=== PATIENT | female | born 1975 | race Caucasian/White ===

== ENCOUNTER 2020-03-29 05:38 | Day surgery (SDC) | payer OTHER, BC ==
[2020-03-22 16:05] VITALS: BMI 38.4
--- NOTE | 2020-03-28 08:01 | P.HPOB ---
History of Present Illness H&P Date: 03/28/20 Chief Complaint: Menorrhagia, dysfunctional uterine bleeding. This patient is a pleasant 44-year-old to 5 para 3 female who is referred to my office in mid January for evaluation of dysfunctional bleeding and menorrhagia. Patient's been having heavy periods approximately 2 times per month. Ultrasound was done which was normal. Patient had a normal Pap smear and endometrial biopsy and is requesting endometrial ablation for treatment. Review of Systems Menstruation: Reports as per HPI, Reports menses variable, Reports period heavy Past Medical History Past Medical History: No Reported History History of Any Multi-Drug Resistant Organisms: None Reported Past Surgical History: Tubal Ligation Additional Past Surgical History / Comment(s): D&C. Past Anesthesia/Blood Transfusion Reactions: Motion Sickness Past Psychological History: No Psychological Hx Reported Smoking Status: Never smoker Past Alcohol Use History: Occasional Past Drug Use History: None Reported - Past Family History Mother Family Medical History: No Reported History Medications and Allergies Home Medications Medication Instructions Recorded Confirmed Type No Known Home Medications 03/22/20 03/22/20 History Allergies Allergy/AdvReac Type Severity Reaction Status Date / Time No Known Allergies Allergy Verified 03/22/20 16:01 Exam - OBG Physical Exam Abdomen: bowel sounds normal, no diffuse tenderness, no bruit present, no guarding noted, no hepatomegaly, no splenomegaly, no mass Vulva: both: normal Vagina: normal moisture, no discharge Cervix: no lesion, no discharge Uterus: normal size, normal contour Results Normal ultrasound and normal endometrial biopsy. Assessment and Plan Assessment: This is a pleasant 44-year-old 5 para 3 female long-standing menorrhagia and dysfunctional bleeding requesting endometrial ablation. Plan is hysteroscopy, D&C, and NovaSure endometrial ablation. Patient I discussed the surgery and risks including risks of infection, bleeding, possible uterine perforation, and/or thermal injury. All the patient's questions are answered written consent is obtained. (1) Dysfunctional uterine bleeding Status: Acute Code(s): N93.8 - OTHER SPECIFIED ABNORMAL UTERINE AND VAGINAL BLEEDING SNOMED Code(s): 74528546931530
[~2020-03-29 05:38] MED LIST: Pre Op ABX Message 1 EACH MISC MISCELLANE ONE
[2020-03-29] MEDS ORDERED: DEXAMETHASONE SOD PHOSPHATE 4 MG/ML 1 ML VIAL IV ONE (06:11)
[2020-03-29] MEDS ORDERED: ONDANSETRON 4 MG/2 ML VIAL IVP ONE ×2 (06:11→07:44)
[2020-03-29] MEDS ORDERED: LACTATED RINGERS 1,000 ML IV SCH (06:11)
[2020-03-29] MEDS ORDERED: LIDOCAINE 1% (10MG/ML) FOR IV START INTRADERMA ONE (06:35)
[2020-03-29] MEDS ORDERED: SCOPOLAMINE 1.5MG/72HR PATCH TRANSDERM ONE (06:45)
[2020-03-29 06:54] VITALS: TEMP 97.4
[2020-03-29] MEDS ORDERED: LIDOCAINE 1% INJ 10MG/ML (20 ML MDV) ONE (07:00)
[2020-03-29] MEDS ORDERED: fentaNYL (PF) 50 MCG/ML 2 ML AMP ONE (07:00)
[2020-03-29] MEDS ORDERED: MIDAZOLAM 2 MG/2 ML VIAL ONE (07:00)
[2020-03-29] MEDS ORDERED: SUCCINYLCHOLINE CHLORIDE 100 MG/5 ML SYR IV ONE (07:00)
[2020-03-29] MEDS ORDERED: KETOROLAC 15 MG/ML 1 ML VIAL ONE (07:00)
[2020-03-29] MEDS ORDERED: HYDROmorphone 0.5 MG/0.5 ML SYRINGE IVP PRN (07:00)
[2020-03-29] MEDS ORDERED: PROPOFOL 10 MG/ML 20 ML VIAL IV ONE (07:00)
[2020-03-29] MEDS ORDERED: ePHEDrine SULFATE/0.9% NACL/PF 50 MG/5 ML SYRINGE IV ONE (07:00)
[2020-03-29] MEDS ORDERED: LACTATED RINGERS 1,000 ML IV ONE (07:27)
--- NOTE | 2020-03-29 07:35 | P.OP ---
Date of Procedure: 03/29/20 Preoperative Diagnosis: Dysfunctional uterine bleeding Postoperative Diagnosis: Same Procedure(s) Performed: #1: Hysteroscopy. #2: Dilation and curettage. #3: NovaSure endometrial ablation Anesthesia: ANTHONY Surgeon: Jose Alfredo Puri Estimated Blood Loss (ml): 5 Urine output (ml): 15 Pathology: other (Uterine curettings) Condition: stable Disposition: PACU Indications for Procedure: Please see dictated H&P for intimate details of this patient's admission. Brief summary this is a 44-year-old multiparous patient with long-standing dysfunctional uterine bleeding who is requesting NovaSure endometrial ablation for treatment. Patient I discussed the surgery and risks and risks of infection, bleeding, possible uterine perforation, and/or thermal injury. All the patient's questions are answered and a written consent is obtained. Operative Findings: Patient had a normal-appearing endometrial cavity without evidence of polyps or fibroids. There was some endometrial thickening anteriorly Description of Procedure: This patient is taken to the operating room where she is laid in the supine position. She subsequent undergoes general endotracheal anesthesia without incident. With an adequate level of anesthesia she's placed in dorsal lithotomy position. She has a vaginal perineal prep and drape. Examination under anesthesia shows a mid position uterus. I first drain her bladder for 15 mL of clear urine. Weighted speculum was then placed in the posterior vagina. Anterior lip of the cervix is gravid and Allis clamp. Cervix is sounded at this time to 9.5 cm. Cervix is then gently dilated to allow the hysteroscope into the uterine cavity. Hysteroscopy is performed with saline solution and the uterine cavity is measured a length of 6.5 cm. The hysteroscope was then removed. Cervix is dilated more to allow the small curette into the uterine cavity a gentle but thorough 4 quadrant curettage is done for adequate sampling. This tissue is sent off to pathology. This completed the NovaSure device is then opened it appears to be intact. Set at a length of 6.5 cm and opens up to a width of 4.7 cm. After it is seated in place it passes the cavity integrity test is then enabled at 168 W setting for 48 seconds. With this done the NovaSure device is then removed it appears to be intact. Hysteroscopy is performed again and the uterine cavity appears to be ablated up to the endocervix. With this done the procedure is ended. The weighted speculum and Allis clamp are removed. All counts are correct 3. There are no complications. Patient is awakened from anesthesia and taken to the recovery room in satisfactory condition.
[2020-03-29 07:50] VITALS: RESP 16
[2020-03-29] MEDS ORDERED: METOCLOPRAMIDE 5 MG/ML 2 ML VIAL IVP ONE (07:58)
[2020-03-29] MEDS ORDERED: Acetaminophen-Codeine 300-30mg TAB PO ONE (08:45)
[2020-03-29] MEDS ORDERED: Acetaminophen-Codeine 300-30mg TAB ONE (08:46)
[2020-03-29 09:17] VITALS: BP 101/65; PULSE 75
== END 2020-03-29 09:33 | disposition home or self-care (01) ==
LOC: OR 05:38
PROVIDERS: ATTEND Obstetrics & Gynecology
DX: N84.0 Polyp of corpus uteri (principal); N92.0 Excessive and frequent menstruation with regular cycle; N93.8 Other specified abnormal uterine and vaginal bleeding; Z98.51 Tubal ligation status; K21.9 Gastro-esophageal reflux disease without esophagitis
CPT/HCPCS: 88305; 84703; 58563; J2250; J1100; J2765; J2405; J2001; J3010; J1885; J0330; J2704

== ENCOUNTER → 2023-03-05 | Outpatient (CLI) | payer OTHER, BC ==
[2023-03-05 11:41] LABS: Basophils # (A) 0.1 k/uL (0-0.2); Basophils % (A) 1 %; Eosinophils # (A) 0.1 k/uL (0-0.7); Eosinophils % (A) 1 %; Lymphocytes # (A) 2.6 k/uL (1.0-4.8); Lymphocytes % (A) 26 %; MCH 29.7 pg (25.0-35.0); MCHC 32.6 g/dL (31.0-37.0); MCV 91.1 fL (80.0-100.0); Mean Platelet Volume 7.3; Monocytes # (A) 0.4 k/uL (0-1.0); Monocytes % (A) 5 %; Neutrophils # (A) 6.6 k/uL (1.3-7.7); Neutrophils % (A) 66 %; Platelet Count 315 k/uL (150-450); RBC 4.72 m/uL (3.80-5.40); RDW 12.8 % (11.5-15.5); WBC 9.9 k/uL (3.8-10.6)
[2023-03-05 11:47] LABS: Total Eosinophil Count 79 #EOS/uL (150-300)
== END | disposition home or self-care (01) ==
LOC: LABWHC1 10:30
PROVIDERS: ATTEND Internal Medicine
DX: J45.50 Severe persistent asthma, uncomplicated (principal)
CPT/HCPCS: 36415; 82785; 85008; 85025